=== PATIENT | male | born 1980 | race Caucasian/White ===

== ENCOUNTER 2020-11-19 21:46 | Emergency (ER) | payer OTHER ==
[~2020-11-19] VITALS: Ht 182.9 cm; Wt 74.8 kg
[2020-11-19 21:53] VITALS: BP 131/83
[2020-11-19] MEDS ORDERED: DESYREL150 MG PO (21:56)
[2020-11-19] MEDS ORDERED: ADZENYS XR-OD15.7 MG PO (21:56)
[2020-11-19] MEDS ORDERED: NORCO5 PO (22:26)
== END 2020-11-19 23:30 | disposition home or self-care (01) ==
LOC: ER 21:46
DX: S60.212A Contusion of left wrist, initial encounter (principal); S50.12XA Contusion of left forearm, initial encounter; Z79.899 Other long term (current) drug therapy; X50.1XXA Overexertion from prolonged static or awkward postures, initial encounter; Y93.64 Activity, baseball; Y92.89 Other specified places as the place of occurrence of the external cause; Y99.8 Other external cause status